=== PATIENT | female | born 1950 | race African-American/Black ===

== ENCOUNTER 2018-05-06 14:42 | Emergency (ER) | payer MEDICARE, OTHER ==
[~2018-05-06] VITALS: Ht 157.5 cm; Wt 90.1 kg
[2018-05-06 19:48] VITALS: BP 144/68
== END 2018-05-06 19:50 | disposition home or self-care (01) ==
LOC: ER 14:42
DX: B99.8 Other infectious disease (principal); H10.89 Other conjunctivitis; I10 Essential (primary) hypertension; K21.9 Gastro-esophageal reflux disease without esophagitis; Z98.890 Other specified postprocedural states; Z98.84 Bariatric surgery status
CPT/HCPCS: 99283

== ENCOUNTER → 2018-09-28 | Outpatient (CLI) | payer MEDICARE, OTHER | END | disposition home or self-care (01) | LOC: RAD 11:33 | PROVIDERS: ATTEND Internal Medicine Gastroenterology | DX: R05 Cough (principal) | CPT/HCPCS: 71046 ==

== ENCOUNTER 2022-02-01 13:07 | Emergency (ER) | payer MEDICARE, OTHER ==
[~2022-02-01] VITALS: Ht 162.6 cm; Wt 100.0 kg
[2022-02-01 13:15] VITALS: BP 149/63
[2022-02-01 17:29] LABS: CHLORIDE 107 mEq/L (98-107)
[2022-02-01 17:30] LABS: BASOPHILS % 0.5 % (0.0-2.0); EOSINOPHILS % 3.3 % (0.0-5.0); HEMATOCRIT. 45.7 % (36.0-48.0); HEMOGLOBIN. 15.1 g/dL (12.0-16.0); LYMPHOCYTES % 33.4 % (20.0-50.0); MEAN CORPUSCULAR HEMOGLOBIN 32.6 pg (28.0-32.0); MEAN CORPUSCULAR VOLUME 98.9 fL (81.0-99.0); MEAN PLATELET VOLUME 8.5 fl (7.4-10.4); MONOCYTES % 8.6 % (2.0-8.0); NEUTROPHILS % 54.2 % (40.0-76.0); PLATELET 205 x1000/uL (130-400); RED BLOOD CELL COUNT 4.62 mill/uL (4.2-5.4); RED CELL DISTRIBUTION WIDTH 13.8 % (11.6-14.6)
[2022-02-01] MEDS ORDERED: FAMO-135 MT (20:44)
== END 2022-02-01 21:05 | disposition home or self-care (01) ==
LOC: ER 13:07
DX: R07.89 Other chest pain (principal); I10 Essential (primary) hypertension; Z98.890 Other specified postprocedural states
CPT/HCPCS: 36415; 71045; 72190; 80053; 83880; 84484; 85025; 93005; 99285

== ENCOUNTER 2022-08-14 12:49 | Emergency (ER) | payer MEDICARE, OTHER ==
[~2022-08-14] VITALS: Ht 162.6 cm; Wt 80.0 kg
[~2022-08-14 12:49] MED LIST: FAMO-135 MT
[2022-08-14 13:09] VITALS: BP 156/57
[2022-08-14] MEDS ORDERED: IBUP-2029 MT (17:10)
[2022-08-14] MEDS ORDERED: IBUPROFEN 600MG TABLET PO ONE (17:15)
== END 2022-08-14 17:38 | disposition home or self-care (01) ==
LOC: ER 12:49
DX: S90.121A Contusion of right lesser toe(s) without damage to nail, initial encounter (principal); X58.XXXA Exposure to other specified factors, initial encounter; Y93.89 Activity, other specified; Y92.89 Other specified places as the place of occurrence of the external cause; Y99.8 Other external cause status; K21.9 Gastro-esophageal reflux disease without esophagitis; I10 Essential (primary) hypertension
CPT/HCPCS: 73630; 99283